=== PATIENT | female | born 1970 | race Caucasian/White ===

== ENCOUNTER 2016-10-14 19:14 | Emergency (ER) | payer MEDICARE, OTHER ==
[~2016-10-14] VITALS: Ht 152.4 cm; Wt 90.7 kg
[~2016-10-14 19:14] MED LIST: AMLO5TAB2 PO; APIX5TAB PO; ATOR20TA PO; ATORVASTATIN CA80 MG PO; ATROPINE; CARV3.122 PO; CITA20TA5 PO; CLOP75TA PO; DILT30TA26 PO; ESCI10TA PO; FAMO20TA5 PO; FLUT9.9S NS; FURO40TA4 PO; GABA-586 PO; LISI40TA PO; METO25TA4 PO; METO25TA9 PO; NYST15PO9 TP; PANT40TA5 PO; SPIR25TA3 PO
[2016-10-14] MEDS ORDERED: MORPHINE SULFATE 10 MG/ML VIAL. IV ONE (20:15)
[2016-10-14] MEDS ORDERED: KETOROLAC TROMETHAMINE 30 MG/ML INJ. IV ONE (20:15)
[2016-10-14 20:16] LABS: NEG OBC UR NEG; POS OBC UR POS
[2016-10-14 20:46] LABS: BASO # 0.1 x10^3/uL (0.0-0.2); BASO % 1 % (0-3); EOS % 2 % (0-3); HEMATOCRIT 46.1 % (36.0-47.0); HEMOGLOBIN 15.2 g/dL (12.0-15.5); LYMPH # 0.7 x10^3/uL (1.0-4.8); LYMPH % 9 % (24-48); MEAN CORPUSCULAR HEMOGLOBIN 26 pg (25-35); MEAN CORPUSCULAR HGB CONC 33 g/dL (31-37); MEAN CORPUSCULAR VOLUME 79 fL (79-100); MONO % 8 % (0-9); NEUT % 80 % (31-73); PLATELET COUNT 99 x10^3/uL (140-400); RED BLOOD COUNT 5.82 x10^6/uL (3.50-5.40); RED CELL DISTRIBUTION WIDTH 15.1 % (11.5-14.5)
[2016-10-14 20:59] LABS: INR 1.1 (0.8-1.1); PROTHROMBIN TIME PATIENT 13.9 SEC (11.7-14.0)
[2016-10-14 21:01] LABS: POTASSIUM ISTAT 3.5 mmol/L (3.5-5.0)
[2016-10-14 21:02] LABS: CALCIUM 9.1 mg/dL (8.5-10.1); CREATININE 1.3 mg/dL (0.6-1.0); GFR 43.7; POTASSIUM 3.5 mmol/L (3.5-5.1)
[2016-10-14 21:15] LABS: ALBUMIN 3.1 g/dL (3.4-5.0); ALBUMIN/GLOBULIN RATIO 0.8 (1.0-1.7); TOTAL BILIRUBIN 1.1 mg/dL (0.2-1.0)
[2016-10-14] MEDS ORDERED: PENICILLIN G BENZATHINE LA 1,200,000 UNIT/2 ML DISP.SYRIN. IM ONE (21:15)
--- NOTE | 2016-10-14 22:24 | RAD ---
Exam: CT soft tissue neck without contrast HISTORY: Left neck pain and swelling, suspected abscess DATE OF SERVICE: 10/14/2016 COMPARISON: MRI brain from 12/20/2015 TECHNIQUE: Contiguous helical acquisition was obtained through the soft tissues neck without IV contrast. Sagittal and coronal reformatted images are obtained. FINDINGS: The airway is essentially preserved. Early infiltrates seen in the left upper lobe, the remainder lung apices are clear. Lack of IV contrast limits evaluation of neck and intrathoracic great vessels, however there is atheromatous calcification of the aorta and neck vessels. No dominant mediastinal or hilar adenopathy seen. Prominent pretracheal and prevascular lymph nodes are seen, measuring less than 1 cm each. Mildly prominent submandibular lymph nodes are identified. Both parotid and submandibular cell regions are present. Mild mucoperiosteal thickening seen in the right sphenoid sinus and bilateral maxillary sinuses. The orbits are clear. Note elevation of the left frontal lobe probably a nonacute infarct. IMPRESSION: Evaluation of potential abscess is somewhat limited due to lack of IV contrast. Mild bilateral maxillary and sphenoid sinuses. PQRS Compliance Statement: One or more of the following individualized dose reduction techniques were utilized for this examination: 1. Automated exposure control 2. Adjustment of the mA and/or kV according to patient size 3. Use of iterative reconstruction technique Electronically signed by: Hayley Spear MD (10/14/2016 10:20 PM)
--- NOTE | 2016-10-14 23:05 | PHYS DOC ---
Past Medical History Past Medical History: CVA, Diabetes-Type II, GA, Renal Disease Past Surgical History: Other Additional Past Surgical Histo: CAROTID ENDARTERECTOMY 2013, PTCA W/STENTS 2012 Alcohol Use: None Drug Use: None Adult General Chief Complaint Chief Complaint: FACE PROBLEM HPI HPI Patient is a 46 year old female presenting to ED for evaluation of sore throat for 3 day. She had CVA and cannot speak well. No fevers, chills, n,v or other systemic symptoms. No soa or drooling. She is anxious but in nad with normal VS. She has not been taking her meds as it hurts to swallow pills. Review of Systems Review of Systems Constitutional: Denies fever or chills [] HENT: + sore throat [] Respiratory: Denies cough or shortness of breath [] Cardiovascular: No additional information not addressed in HPI [] Current Medications Current Medications Current Medications Medications (Trade) Dose Ordered Sig/Olesya Start Time Stop Time Status Last Admin Dose Admin Ketorolac Tromethamine (Toradol) 30 mg 1X ONCE 10/14/16 20:15 10/14/16 20:16 DC 10/14/16 20:53 30 MG Morphine Sulfate 5 mg 1X ONCE 10/14/16 20:15 10/14/16 20:16 DC 10/14/16 20:56 5 MG Penicillin G Benzathine (Bicillin L-A) 1,200,000 unit 1X ONCE 10/14/16 21:15 10/14/16 21:16 DC 10/14/16 21:33 1,200,000 UNIT Allergies Allergies Allergies Coded Allergies Type Severity Reaction Last Updated Verified I S O L A T I O N *CONTACT* Allergy Unknown 04/22/16 Yes No Known Medication Allergies Allergy Unknown 04/22/16 Yes Physical Exam Physical Exam Constitutional: Well developed, well nourished, no acute distress, non-toxic appearance. [] HENT: Normocephalic, atraumatic, bilateral external ears normal, erythemetous pharynx but no swelling or obstruction noted. No trismus and able to swallow with no difficulty. Eyes: PERRLA, EOMI, conjunctiva normal, no discharge. [] Neck: Normal range of motion, no tenderness, supple, no stridor. [] Current Patient Data Vital Signs Vital Signs Date Time Temp Pulse Resp B/P (MAP) Pulse Ox O2 Delivery O2 Flow Rate FiO2 10/14/16 20:56 17 98 10/14/16 19:40 98.0 85 199/107 (137) Room Air 98.0 Lab Values Laboratory Tests Test 10/14/16 19:39 10/14/16 20:36 10/14/16 20:47 Urine Test Negative (NEG) White Blood Count 8.0 x10^3/uL (4.0-11.0) Red Blood Count 5.82 x10^6/uL (3.50-5.40) H Hemoglobin 15.2 g/dL (12.0-15.5) Hematocrit 46.1 % (36.0-47.0) Mean Corpuscular Volume 79 fL (79-100) Mean Corpuscular Hemoglobin 26 pg (25-35) Mean Corpuscular Hemoglobin Concent 33 g/dL (31-37) Red Cell Distribution Width 15.1 % (11.5-14.5) H Platelet Count 99 x10^3/uL (140-400) L Neutrophils (%) (Auto) 80 % (31-73) H Lymphocytes (%) (Auto) 9 % (24-48) L Monocytes (%) (Auto) 8 % (0-9) Eosinophils (%) (Auto) 2 % (0-3) Basophils (%) (Auto) 1 % (0-3) Neutrophils # (Auto) 6.4 x10^3uL (1.8-7.7) Lymphocytes # (Auto) 0.7 x10^3/uL (1.0-4.8) L Monocytes # (Auto) 0.6 x10^3/uL (0.0-1.1) Eosinophils # (Auto) 0.1 x10^3/uL (0.0-0.7) Basophils # (Auto) 0.1 x10^3/uL (0.0-0.2) Prothrombin Time 13.9 SEC (11.7-14.0) Prothrombin Time INR 1.1 (0.8-1.1) PTT 30 SEC (24-38) Sodium Level 142 mmol/L (136-145) Potassium Level 3.5 mmol/L (3.5-5.1) Chloride Level 104 mmol/L (98-107) Carbon Dioxide Level 30 mmol/L (21-32) Anion Gap 8 (6-14) 14 mmol/L (6-14) Blood Urea Nitrogen 16 mg/dL (7-20) Creatinine 1.3 mg/dL (0.6-1.0) H Estimated GFR (Cockcroft-Gault) 43.7 BUN/Creatinine Ratio 12 (6-20) Glucose Level 106 mg/dL (70-99) H 103 mg/dL (70-99) H Calcium Level 9.1 mg/dL (8.5-10.1) Total Bilirubin 1.1 mg/dL (0.2-1.0) H Aspartate Amino Transferase (AST) 19 U/L (15-37) Alanine Aminotransferase (ALT) 14 U/L (14-59) Alkaline Phosphatase 103 U/L (46-116) Creatine Kinase 57 U/L (26-192) Total Protein 7.0 g/dL (6.4-8.2) Albumin 3.1 g/dL (3.4-5.0) L Albumin/Globulin Ratio 0.8 (1.0-1.7) L POC Hemoglobin 15.6 g/dL (12-15) H POC Hematocrit 46 % (36-40) H POC Sodium 139 mmol/L (135-145) POC Potassium 3.5 mmol/L (3.5-5.0) POC Chloride 101 mmol/L (98-110) POC Total CO2 28 mmol/L (23-32) POC Blood Urea Nitrogen 15 mg/dL (8-26) POC Creatinine 1.3 mg/dL (0.5-1.4) POC Ionized Calcium (Timbo) 1.11 mmol/L (1.13-1.32) L Laboratory Tests 10/14/16 20:36 Laboratory Tests 10/14/16 20:36 10/14/16 20:47 EKG EKG [] Radiology/Procedures Radiology/Procedures Exam: CT soft tissue neck without contrast HISTORY: Left neck pain and swelling, suspected abscess DATE OF SERVICE: 10/14/2016 COMPARISON: MRI brain from 12/20/2015 TECHNIQUE: Contiguous helical acquisition was obtained through the soft tissues neck without IV contrast. Sagittal and coronal reformatted images are obtained. FINDINGS: The airway is essentially preserved. Early infiltrates seen in the left upper lobe, the remainder lung apices are clear. Lack of IV contrast limits evaluation of neck and intrathoracic great vessels, however there is atheromatous calcification of the aorta and neck vessels. No dominant mediastinal or hilar adenopathy seen. Prominent pretracheal and prevascular lymph nodes are seen, measuring less than 1 cm each. Mildly prominent submandibular lymph nodes are identified. Both parotid and submandibular cell regions are present. Mild mucoperiosteal thickening seen in the right sphenoid sinus and bilateral maxillary sinuses. The orbits are clear. Note elevation of the left frontal lobe probably a nonacute infarct. IMPRESSION: Evaluation of potential abscess is somewhat limited due to lack of IV contrast. Mild bilateral maxillary and sphenoid sinuses. PQRS Compliance Statement: One or more of the following individualized dose reduction techniques were utilized for this examination: 1. Automated exposure control 2. Adjustment of the mA and/or kV according to patient size 3. Use of iterative reconstruction technique Electronically signed by: Hayley Spear MD (10/14/2016 10:20 PM) DICTATED and SIGNED BY: HAYLEY SPEAR MD DATE: 10/14/162209 Course & Med Decision Making Course & Med Decision Making Patient with positive strep. Pain improved here and able to swallow fluids with no difficulty. Patient will be discharged in stable condition. Dragon Disclaimer Dragon Disclaimer This electronic medical record was generated, in whole or in part, using a voice recognition dictation system. Departure Departure Impression: Primary Impression: Strep sore throat Disposition: 01 HOME, SELF-CARE Condition: GOOD Referrals: UNKNOWN PCP NAME (PCP) Patient Instructions: Strep Throat Additional Instructions: TAKE 400MG OF IBUPROFEN EVERY 6 HOURS AND THE NORCO FOR BREAKTHROUGH PAIN. MAKE SURE THAT YOU ARE TAKING YOUR MEDICATIONS. THANK YOU! Scripts Hydrocodone/Apap 5-325 (NORCO 5-325 TABLET) 1 Each Tablet 1 TAB PO PRN Q6HRS Y for PAIN, #14 TAB 0 Refills Prov: RAPHAEL GARZA DO 10/14/16 RAPHAEL GARZA DO Oct 14, 2016 23:05
[2016-10-14] MEDS ORDERED: HYDR-971 PO (23:39)
[2016-10-14] MEDS ORDERED: oxyCODONE/APAP 5/325 1 TAB TABLET PO ONE (23:55)
[2016-10-14] MEDS ORDERED: DEXAMETHASONE SOD PHOS 20 MG/5 ML VIAL. IV ONE (23:55)
[2016-10-15 00:14] VITALS: BP 185/103
[2016-10-15 07:55] LABS: NEGATIVE OBC STREP NEG; POSITIVE OBC STREP POS
== END 2016-10-15 00:33 | disposition home or self-care (01) ==
LOC: ER 19:14
DX: J02.0 Streptococcal pharyngitis (principal); F41.9 Anxiety disorder, unspecified; I25.2 Old myocardial infarction; E11.22 Type 2 diabetes mellitus with diabetic chronic kidney disease; N18.9 Chronic kidney disease, unspecified; Z95.5 Presence of coronary angioplasty implant and graft; Z86.73 Personal history of transient ischemic attack (TIA), and cerebral infarction without residual deficits; Z91.041 Radiographic dye allergy status
CPT/HCPCS: 36415; 70490; 80047; 80053; 81025; 82550; 85027; 85610; 85730; 87880; 96372; 96374; 96375; 99285; J0561; J1100; J1885; J2270

== ENCOUNTER → 2019-02-23 | Outpatient (CLI) | payer MEDICARE ==
[~2019-02-23] MED LIST changes: +AMLO5TAB10 PO; -AMLO5TAB2 PO; +CARV3.1210 PO; -CARV3.122 PO; -CITA20TA5 PO; +CITA20TA6 PO; -ESCI10TA PO; +ESCITALOPRAM OX10 MG PO; -GABA-586 PO; +GABA300C18 PO; +HYDR-3164 PO; +LISI-130 PO; -LISI40TA PO; +METO-239 PO; -METO25TA9 PO; -PANT40TA5 PO; +PANT40TA77 PO; -SPIR25TA3 PO; +SPIR25TA5 PO
--- NOTE | 2019-02-25 07:56 | KCIC ---
BILATERAL SCREENING MAMMOGRAM History: Routine screening. Severe right shoulder pain. History of stroke involving right side. Comparison: None available. Interpreted as new baseline examination. Technique: Routine bilateral digital mammogram views were obtained. Findings: Breast Tissue Density A : The breasts are almost entirely fatty. There is a nodular asymmetry in the left breast 12:00 position at mid depth. There is a second nodular asymmetry in the outer left breast at mid depth without correlate on the MLO view. Bilateral benign calcifications are noted. There are no dominant masses, suspicious microcalcifications, or architectural distortion. IMPRESSION: There are 2 nodular asymmetries in the left breast. Recommend further evaluation with left breast ultrasound. BI-RADS Category 0: Incomplete: Need additional imaging evaluation. The images were reviewed with computer aided detection. Patient information is entered into the reminder system with a target due date for the next screening mammogram. Mammography is the most sensitive method for finding small breast cancers, but it does not detect them all and is not a substitute for careful clinical examination. A negative mammogram does not negate a clinically suspicious finding and should not result in delay in biopsying a clinically suspicious abnormality. "Our facility is accredited by the [employer] Mammography Program." Electronically signed by: Jesse Izquierdo MD (02/25/2019 7:53 AM) [id number]
== END | disposition home or self-care (01) ==
LOC: KCIC MAMMO 12:26
PROVIDERS: ATTEND Family Medicine
DX: Z12.31 Encounter for screening mammogram for malignant neoplasm of breast (principal); N64.89 Other specified disorders of breast
CPT/HCPCS: 77067